=== PATIENT | male | born 1940 | race American Indian/Alaskan Native ===

== ENCOUNTER 2019-01-13 13:03 | Day surgery (SDC) | payer OTHER ==
--- NOTE | 2019-01-13 14:24 | Anesthesia Day of Surgery ---
Anesthesia Day of Surgery - Day of Surgery Patient Examined: Yes Patient H&P Reviewed: Yes Patient is NPO: Yes
--- NOTE | 2019-01-13 14:30 | Anesthesia Consultation ---
Anesthesia Consult and Med Hx Date of service: 01/13/19 - Airway Anesthetic Teeth Evaluation: Good, Dentures ROM Head & Neck: Adequate Mental/Hyoid Distance: Adequate Mallampati Class: Class I Intubation Access Assessment: Good - Pre-Operative Health Status ASA Pre-Surgery Classification: ASA2 Proposed Anesthetic Plan: MAC - Central Nervous System Hx Back Pain: Yes (Spinal Fusion [id number])
[2019-01-13] MEDS ORDERED: NACL 0.9% 1000 ML 1,000 ML IV SCH (15:00)
[2019-01-13] MEDS ORDERED: WATER FOR IRRIG STERILE IR ONE (15:04)
[2019-01-13] MEDS ORDERED: WATER FOR IRRIG STERILE ONE (15:04)
[2019-01-13] MEDS ORDERED: DIPRIVAN 10 MG/ML IV ONE ×2 (15:31→15:56)
--- NOTE | 2019-01-13 17:01 | Operative Report ---
Operative Report Operative Report: Date of procedure: 01/13/2019 Procedure: Colonoscopy with Hot Biopsy Polypectomy. Attending physician: Beni Magallanes MD Reading Assistant: Beni Magallanes MD Indication: Patient is a 78-year-old male who presents for screening colonoscopy. This colonoscopy serves to evaluate patient so that treatment may be directed based on the findings. Consent: Informed consent was obtained after advising the patient and family regarding nature of this procedure, its indications, potential benefits as well as possible complications including but not limited to bleeding perforation and adverse reaction to medication, infection as well as other cardiopulmonary complications. An informed written and verbal consent was then obtained after due opportunity was provided for questions and answers. Monitoring: Patient was monitored continuously with pulse oximetry and electrocardiographic recordings as well as blood pressure recordings. Vital signs remained stable throughout this procedure with no untoward events. Preoperative assessment: Patient was assessed immediately prior to this procedure for capacity to tolerate monitored anesthesia care and moderate sedation as well as general anesthesia. Patient's ASA classification is 2, Mallampati class is 2, Hyomental distance is 3. Instrument: Olympus video colonoscope [id number] Medications: Propofol given intravenously in divided doses. For details please refer to anesthesia records. Description of procedure: Patient was placed in the left lateral decubitus position after achieving sedation, a digital rectal examination was performed following which the colonoscope was introduced into the anal verge and advanced to the cecum which was identified by the cecal valve, the appendiceal orifice, as well as by the cecal strap and direct transillumination. The colonoscope was subsequently withdrawn with careful inspection of all mucosal surfaces. Patient tolerated this procedure well and was subsequently taken to the recovery room. The following findings were noted. Findings: Patient had a diminutive sessile polyp in the transverse colon colon which measured 4-5 mm. The polyps was removed by hot biopsy polypectomy and retrieved. There were scattered diminutive diverticula in the sigmoid colon. Patient had substantial retained stool in various sections of the colon. In particular in the ascending colon and cecum, there was densely adherent stool that made it very difficult to visualize some areas despite vigorous irrigation. On the retroflex view at the anal verge, patient had internal hemorrhoids. Impression: Diminutive transverse colon polyp status post hot biopsy polypectomy. Diverticula disease of the colon. Retained stool with poor colonoscopic preparation Internal hemorrhoids. Plan: Follow pathology report. High-fiber diet. Repeat colonoscopy in 1 year due to poor Colonoscopic preparation.
--- NOTE | 2019-01-13 17:02 | Discharge Summary ---
Short Stay Discharge Plan Activity: advance as tolerated Weight Bearing Status: Weight Bear as Tolerated Diet: regular Additional Instructions: Post Sedation D/C Instructions When you return home you may resume your regular diet unless otherwise directed. -Go directly home from the hospital and rest quietly. You may resume normal activities tomorrow. -Do NOT drive, return to work, operate any machinery or make any important personal or business decisions today. -Do NOT drink any alcohol or take nerve or sleeping drugs. They add to the effects of the medicine still present in your body. -no nsaids or aspirin in next 2-3 days follow up appointment with Dr. Magallanes in 1-2 wks Follow up with: LYNDA FERRARO MD [Primary Care Provider] - 7 Days
[2019-01-13 17:05] VITALS: BP 126/61
[2019-01-14] MEDS ORDERED: NACL 0.9% 1000 ML 1,000 ML IV SCH (08:00)
== END 2019-01-13 13:04 | disposition home or self-care (01) ==
LOC: GIO 13:03
PROVIDERS: ATTEND Internal Medicine Gastroenterology
DX: Z12.11 Encounter for screening for malignant neoplasm of colon (principal); D12.3 Benign neoplasm of transverse colon; K57.30 Diverticulosis of large intestine without perforation or abscess without bleeding; K64.8 Other hemorrhoids; Z87.891 Personal history of nicotine dependence; Z79.899 Other long term (current) drug therapy; Z88.5 Allergy status to narcotic agent; Z98.890 Other specified postprocedural states; Z88.8 Allergy status to other drugs, medicaments and biological substances
CPT/HCPCS: 45384; 88305; J2704; J7030